=== PATIENT | male | born 1980 | race Hispanic/Latino ===

== ENCOUNTER 2019-07-26 | Emergency (ER) | payer SELFPAY ==
[2019-07-26] MEDS ORDERED: AMOX/K CLAV875 M1 PO (14:34)
[2019-07-27] MEDS ORDERED: MIRALAX3350 N1 PO (15:24)
== END 2019-07-26 15:25 | disposition home or self-care (01) | DRG 921 ==
DX: T81.31XA Disruption of external operation (surgical) wound, not elsewhere classified, initial encounter (principal); Y83.9 Surgical procedure, unspecified as the cause of abnormal reaction of the patient, or of later complication, without mention of misadventure at the time of the procedure; E11.9 Type 2 diabetes mellitus without complications

== ENCOUNTER 2019-07-27 | Emergency (ER) | payer SELFPAY ==
[~2019-07-27] MED LIST: AMOX/K CLAV875 M1 PO
[2019-07-27] MEDS ORDERED: MIRALAX3350 N1 PO (15:24)
== END 2019-07-27 15:25 | disposition home or self-care (01) | DRG 950 ==
DX: T81.31XD Disruption of external operation (surgical) wound, not elsewhere classified, subsequent encounter (principal); Y83.9 Surgical procedure, unspecified as the cause of abnormal reaction of the patient, or of later complication, without mention of misadventure at the time of the procedure

== ENCOUNTER 2019-07-28 | Emergency (ER) | payer SELFPAY ==
[~2019-07-28] MED LIST changes: +MIRALAX3350 N1 PO
[2019-07-29] MEDS ORDERED: DOK100 MG PO (14:25)
== END 2019-07-28 15:10 | disposition home or self-care (01) | DRG 950 ==
DX: T81.31XD Disruption of external operation (surgical) wound, not elsewhere classified, subsequent encounter (principal); Y83.9 Surgical procedure, unspecified as the cause of abnormal reaction of the patient, or of later complication, without mention of misadventure at the time of the procedure

== ENCOUNTER 2019-07-29 | Emergency (ER) | payer SELFPAY ==
[2019-07-29] MEDS ORDERED: DOK100 MG PO (14:25)
== END 2019-07-29 14:55 | disposition home or self-care (01) | DRG 950 ==
DX: T81.31XD Disruption of external operation (surgical) wound, not elsewhere classified, subsequent encounter (principal); Y83.9 Surgical procedure, unspecified as the cause of abnormal reaction of the patient, or of later complication, without mention of misadventure at the time of the procedure

== ENCOUNTER 2019-08-03 | Emergency (ER) | payer SELFPAY ==
[~2019-08-03] MED LIST changes: +DOK100 MG PO
[2019-08-03 09:06] LABS: HEMATOCRIT 39.2 % (39.0-50.0); HEMOGLOBIN 12.9 g/dl (14.0-18.0); IMMATURE GRANULOCYTES 0.3 % (0.0-5.0); MEAN CELL VOLUME 86.7 fL CALC (80.0-100.0); MEAN CORPUSCULAR HGB 28.5 pG CALC (26.0-32.0); MEAN CORPUSCULAR HGB CONC 32.9 g/L CALC (32.0-36.0); NEUT# 7.67 thou/uL (1.82-7.42); RED BLOOD COUNT 4.52 mill/uL (4.70-6.10); RED CELL DISTRI WIDTH 11.9 % (11.5-15.5)
[2019-08-03 09:18] LABS: ALKALINE PHOSPHATASE 104 u/l (38-126); ANION GAP 16 (6-22 (CALC)); BILIRUBIN, TOTAL 0.5 mg/dL (0.0-1.4); BUN 13 mg/dL (9-20); BUN/CREATININE RATIO 23 (12-20 (CALC)); CARBON DIOXIDE 21 mmol/l (22-30); CHLORIDE 103 mmol/l (95-108); CREATININE 0.6 mg/dL (0.7-1.3); GFR > 60 ML/MIN (>=60 (CALC)); GFR FOR AFR.AMER. > 60 ML/MIN (>=60 (CALC)); POTASSIUM 4.4 mmol/l (3.5-5.1); SGOT/AST 28 u/l (17-59); SODIUM 136 mmol/l (137-146); TOTAL PROTEIN 7.7 g/dL (6.3-8.2)
[2019-08-03 13:13] LABS: URINE BILIRUBIN - DIPSTICK NEGATIVE (NEGATIVE); URINE BLOOD DIPSTICK NEGATIVE (NEGATIVE); URINE COLOR YELLOW; URINE GLUCOSE - DIPSTICK NEGATIVE (NEGATIVE); URINE KETONE TRACE mg/dL (NEGATIVE); URINE LEUK ESTERASE NEGATIVE (NEGATIVE); URINE NITRITE - DIPSTICK NEGATIVE (Negative); URINE PH 5.5 (4.5-8.0); URINE PROTEIN - DIPSTICK NEGATIVE (NEG-TRACE)
[2019-08-03] MEDS ORDERED: CIPROFLOXACIN500 M1 PO (14:36)
[2019-08-03] MEDS ORDERED: METRONIDAZOL500 MG PO (14:36)
== END 2019-08-03 16:10 | disposition home or self-care (01) | DRG 392 ==
PROVIDERS: Emergency Medicine
DX: R10.31 Right lower quadrant pain (principal); E11.9 Type 2 diabetes mellitus without complications; Z98.890 Other specified postprocedural states
CPT/HCPCS: Q9967

== ENCOUNTER 2020-10-17 23:26 | Inpatient (IN) | payer OTHER ==
[~2020-10-17] VITALS: Ht 162.6 cm; Wt 110.0 kg
[~2020-10-17 23:26] MED LIST changes: +CIPROFLOXACIN500 M1 PO; +METRONIDAZOL500 MG PO
--- NOTE | 2020-10-17 23:29 | NUR ---
ARRIVED AMBULATORY..FROM REGISTRATION TO ROOM 10. C/O SOB. TRIAGED AT BEDSIDE. TO BEDSIDE.
[2020-10-17 23:56] LABS: HEMATOCRIT 38.5 % (39.0-50.0); HEMOGLOBIN 13.3 g/dl (14.0-18.0); IMMATURE GRANULOCYTES 0.3 % (0.0-5.0); MEAN CELL VOLUME 85.6 fL CALC (80.0-100.0); MEAN CORPUSCULAR HGB 29.6 pG CALC (26.0-32.0); MEAN CORPUSCULAR HGB CONC 34.5 g/dL CAL (32.0-36.0); NEUT# 6.1 thou/uL (1.82-7.42); RED BLOOD COUNT 4.5 mill/uL (4.70-6.10); RED CELL DISTRI WIDTH 12.1 % (11.5-15.5)
[2020-10-18] VITALS (16 sets, daily range): BP systolic 131–176; BP diastolic 63–86
[2020-10-18 00:10] LABS: ALBUMIN 3.3 g/dL (3.2-5.0); ALKALINE PHOSPHATASE 92 u/l (38-126); BILIRUBIN, TOTAL 0.7 mg/dL (0.0-1.4); BUN 9 mg/dL (9-20); BUN/CREATININE RATIO 17 (12-20 (CALC)); CREATININE 0.5 mg/dL (0.7-1.3); GFR > 60 ML/MIN (>=60 (CALC)); GFR FOR AFR.AMER. > 60 ML/MIN (>=60 (CALC))
[2020-10-18 00:15] LABS: CHLORIDE 93 mmol/l (95-108)
[2020-10-18 00:17] LABS: ANION GAP 9 (6-22 (CALC)); CARBON DIOXIDE 30 mmol/l (22-30); POTASSIUM 3.3 mmol/l (3.5-5.1); SGOT/AST 59 u/l (17-59); SODIUM 129 mmol/l (137-146); TOTAL PROTEIN 6.1 g/dL (6.3-8.2)
--- NOTE | 2020-10-18 00:30 | NUR ---
RESTING QUIETLY AWAITING TEST RESULTS.
--- NOTE | 2020-10-18 01:02 | NUR ---
RETURNED FROM CT. SAO2 89 INCREASED O2 TO 6 LPM.
[2020-10-18 01:03] LABS: URINE BILIRUBIN - DIPSTICK NEGATIVE (NEGATIVE); URINE BLOOD DIPSTICK SMALL (NEGATIVE); URINE COLOR YELLOW; URINE GLUCOSE - DIPSTICK >=1000 mg/dL (NEGATIVE); URINE KETONE >=80 mg/dL (NEGATIVE); URINE PROTEIN - DIPSTICK 100 mg/dL (NEG-TRACE); URINE SPECIFIC GRAVITY 1.025
[2020-10-18 01:10] LABS: URINE LEUK ESTERASE NEGATIVE (NEGATIVE); URINE NITRITE - DIPSTICK NEGATIVE (Negative)
[2020-10-18 01:11] LABS: URINE BACTERIA FEW hpf; URINE EPITHELIAL CELLS FEW EPI/hpf (0-FEW); URINE MUCUS MODERATE hpf (NONE-FEW)
--- NOTE | 2020-10-18 02:00 | NUR ---
AWAITING DISPO APPEARS COMFORTABLE
--- NOTE | 2020-10-18 02:20 | NUR ---
Admission Note Report Given to: CINDA MOREAU Transported by: X Wheelchair Stretcher Transported with: X Nurse Transporter X Patent IV X O2 X Guard Manager Location: ICU X MS2
--- NOTE | 2020-10-18 02:25 | NUR ---
PT ARRIVED TO FLOOR VIA WHEELCHAIR ACCOMPAINED BY ER STAFF. PT A&O X4. NO APPARENT DISTRESS NOTED. RESPIRATIONS LABORED, SOB WITH EXERTION ON 6L/M VIA NC. DRY NON-PRODUCTIVE COUGH NOTED. PT AMBULATORY WITH STEADY GAIT FROM WHEELCHAIR TO BED. SKIN INTACT. OFFICE RECEPTIONIST IN PLACE. IV SITE APPEARS HEALHTY WITH IVF INFUSING @ 125ML/HR. PT DENIES ANY PAIN OR DISCOMFORT. CHUY HOSE AND NON-SKID SOCKS APPLIED. PT ORIENTED TO ROOM AND CALL LIGHT SYSTEM. DISCUSSED POC. PT VERBALIZED UNDERSTANDING. FRESH ICE WATER PROVIDED. PT DENIES ANY CURRENT WANTS OR NEEDS. CALL LIGHT WITHIN REACH. WILL CONTINUE TO MONITOR.
--- NOTE | 2020-10-18 07:00 | NUR ---
PT REPORT RECEIVED FROM NIGHT NURSELIZZETH.
--- NOTE | 2020-10-18 08:00 | NUR ---
PT WAS FOUND RESTING IN BED IN SEMI-FOWLERS POSITION;PT WAS A&O X3;VS AND ASSESSMENT WAS COMPLETED;PT HAS NO REPORTS OF PAIN AT THIS TIME;HEART SOUNDS ARE REGULAR IN RATE AND RHYTHM;LUNG SOUNDS ARE CLEAR AND DIMINSHED IN THE LOWER LOBES;PT O2 SAT IS 86% ON O2 VIA NC @6L;RESPIRATIONS ARE LABORED;NON-PRODUCTIVE COUGH NOTED;CALL WAS MADE TO RESPIRATORY THERAPY;REQUESTED THEM TO COME AND EVALUATE PT CLARITZA;TELE IS IN PLACE;#20G IV IN LAC IS RUNNING NS@125ML/HR;IV SITE IS FREE OF COMPLICATIONS AT THIS TIME;SAFETY PRECAUTIONS IN PLACE;CALL LIGHT WITHIN REACH;BED IN LOWEST POSITION;WILL CONTINUE TO MONITOR.
--- NOTE | 2020-10-18 08:20 | NUR ---
PT VS WERE TAKEN AND O2 SATS FOUND TO BE AT 86% ON O2 @6L VIA NC;PT WAS EXPERIENCING LABORED BREATHING;RESPIRATORY THERAPY WAS CONTACTED AND REQUESTED TO COME EVALUATE PT;
--- NOTE | 2020-10-18 08:31 | NUR ---
SLAB GRINDER CALLED TO ASSES PT PER INCREASED WOB AND DECREASED SPO2 ON 6L NC. SLAB GRINDER CHECKED SPO2 PER PORTABLE PULSE OXIMETRY. SPO2 =74 AT THAT TIME. SLAB GRINDER SET UP HFNC O2 DELIVERY SYSTEM AND PLACED PT ON 15LPM HFNC. PT SPO2 INCREASED TO 85 SLOWLY, AT THIS TIME RT CONSULTED WITH KETTLE HAND AND SUGGESTED TRANSFER TO ICU PER PT INCREASED O2 DEMAND. SLAB GRINDER THEN CONSULTED WITH PT AND INFORMED OF POSSIBLE TRANSFER FOR CLOSER MONITORING. PT VERBALIZED HE UNDERSTOOD, AND IS RECEPTIVE TO THE TRANSFER TO ICU. SLAB GRINDER THEN BROUGHT VAPOTHERM SET UP TO ICU FOR QUICK SET UP AND DEPLOYMENT OF HHFNC/VAPOTHERM O2 DELIVERY SYSTEM TO BETTER SUIT PT O2 DEMAND AT THIS TIME. SLAB GRINDER TO MONITOR.
[2020-10-18 09:59] LABS: C-REACTIVE PROTEIN 21.2 mg/dL (0-0.9)
--- NOTE | 2020-10-18 10:41 | NUR ---
report received from Saulo Hill RN
--- NOTE | 2020-10-18 10:54 | NUR ---
CALL WAS MADE TO GHADA IN ICU;PT REPORT GIVEN FOR TRANSFER TO UNIT;PT WAS TRANSPORTED VIA STRETCHER TO ICU IN STABLE CONDITION;PT WAS ACCOMPANIED BY CONCRETE MIXER LOADER TRUCK MOUNTED AND SARAH LOYA;PT WAS TRANSPORTED ON 15L O2 VIA NC
--- NOTE | 2020-10-18 10:57 | NUR ---
male pt received to ICU bed 1 via bed accompanied by Saulo Hill and RT Curtis in stable condition; assessment completed at this time; pt alert and oriented; denies pain; no n/v noted; resp shallow, nonlabored; lungs clear/ diminished bases; skin color wnl; vapotherm placed per RT Curtis/ RT at bedside to titrate settings; dry cough noted/ pt admits to coughing up phelgm; no sputum to observe at this time; hr reg; strong pulses; no edema noted; sr on monitor; abd soft with bs present; no bm noted per insurance underwriter sales; no urine to inspect at this time; urinal placed at bedside; #20 patent to lac; ivf infusing without complication; no redness or edema noted at site; proning explained and strongly encouraged; pt admits to attempting prone position and not tolerating well d/t sob; plan of care/ am meds explained; call light within reach; will continue to monito
--- NOTE | 2020-10-18 11:26 | NUR ---
PLACED PT ON VAPOTHERM UPON ARRIVAL TO ICU. PT TRANSPORTED TO ICU FROM [facility] ON 15LPM [facility] C SPO2 @ 88. UPON ARRIVAL, CHIEF PRIVACY OFFICER PLACED PT ON VAPOTHERM 20LPM/50%FIO2 AND TITRATED TO KEEP SPO2 >/= 92%. RN AT BEDSIDE C CHIEF PRIVACY OFFICER AND PT, RN AWARE OF VAPOTHERM. PT VERBALIZES UNDERSTANDING OF OXYGEN DELIVERY SYSTEM. CHIEF PRIVACY OFFICER TO MONITOR.
--- NOTE | 2020-10-18 12:20 | NUR ---
awake in bed eating lunch; no apparent distress noted; pt offers no complaints; iv intact and patent; sr on monitor; vapotherm at 40L with 100% FiO2; call light within reach; will continue to monitor
--- NOTE | 2020-10-18 12:49 | NUR ---
angelina Schwab called per inspector automatic typewriter as per pt request; update provided;
--- NOTE | 2020-10-18 14:14 | NUR ---
awake in bed; no apparent distress noted; pt admits to breathing easiler; sr on monitor; vapotherm intact and maintained; o2 sat 93%; call light within reach; will continue to monitor
--- NOTE | 2020-10-18 15:05 | NUR ---
PT RESTING OMFORTABLY, ASLEEP, FLAT IN BED, SUPIN. NO ACUTE DISTRESS NOTED AT THIS TIME. SLASHER SAWYER TO MONITOR.
--- NOTE | 2020-10-18 15:57 | NUR ---
pt awake in bed; no apparent distress noted; resp even and unlabored; vapotherm intact and maintained with 40L at 100% FiO2; sr on monitor; iv intact and patent; no redness or edema noted at site; call light within reach; will continue to monitor
--- NOTE | 2020-10-18 17:55 | NUR ---
awake in bed; no apparent distress noted; pt offers no complaints; eating dinner; iv intact and patent; no redness or edema noted at site; sr on monitor; vapotherm intact and maintained; call light within reach
--- NOTE | 2020-10-18 18:13 | NUR ---
sister Perla called this telegraphic typewriter installer; passcode verified; update provided
--- NOTE | 2020-10-18 19:28 | NUR ---
PATIENT RESTING IN BED WITH EYES CLOSED. RESP EVEN AND UNLABORED, VAPOTHERM IN PLACE. NO S/S OF DISTRESS NOTED. FALL AND SAFTEY PRECAUTIONS IN PLACE. IV INFUSING KVO FLUIDS. USING BEDSIDE URINAL. PLAN OF CARE DISCUSSED. PATIENT INFORMED TO CALL WITH ANY QUESTIONS OR CONCERNS.
--- NOTE | 2020-10-18 21:14 | NUR ---
PATIENT EDUCATED ON BENEFITS OF PRONING. PATIENT STATED THAT HE IS MORE SOB PRONING. PM MEDICATIONS GIVEN PER MD ORDERS.
[2020-10-19] VITALS (22 sets, daily range): BP systolic 131–185; BP diastolic 70–95
--- NOTE | 2020-10-19 | NUR ---
PATIENT RESTING WITH EYES CLOSED. RESP SHALLOW AND LABORED, VAPOTHERM IN PLACE. FALL AND SAFTY PRECAUTION IN PLACE.
--- NOTE | 2020-10-19 02:00 | NUR ---
PATIENT RESTING WITH EYES CLOSED. RESP SHALLOW AND LABORED, VAPOTHERM IN PLACE. PATIENT'S O2 SAT DROPPED TO LOW 80%, PATIENT RECOVERED AFTER SEVERAL MINS. FALL AND SAFTEY PRECAUTIONS IN PLACE.
--- NOTE | 2020-10-19 04:30 | NUR ---
PATIENT HAD SEVERAL EPISODES OF COUGHING WHICH LEAD TO SHALLOW BREATHING AND LOW O2 SAT. PATIENT WAS PLACED ON NON-REBREATHER AT 15L WITH VAPOTHERM IN PLACE 40L 100%. RT CALLED TO BEDSIDE, AFTER COACHING THE PATIENT TO DEEP BREATH HIS O2 SAT DIDN'T SHOW MUCH IMPROVEMENT. O2 SAT AT THAT TIME WERE 80-82%. THE PATIENT WAS THEN PLACED ON BIPAP DUE TO RESP DISTRESS. CALL WAS PLACED TO HARINDER HILTON, TO UPDATED ON PATIENT CONDITION. NEW ORDERS GIVEN FOR XANAX AND ROBITUSSION AC. INSTRUCTED TO GIVEN XANAX FIRST AND WAIT SEVERAL HOURS TO GIVEN ROBITUSSION AC TO AVIOD OVER SEDATION.
[2020-10-19 05:00] LABS: HEMATOCRIT 41.8 % (39.0-50.0); IMMATURE GRANULOCYTES 0.9 % (0.0-5.0); MEAN CELL VOLUME 86.9 fL CALC (80.0-100.0); MEAN CORPUSCULAR HGB 29.1 pG CALC (26.0-32.0); MEAN CORPUSCULAR HGB CONC 33.5 g/dL CAL (32.0-36.0); NEUT# 12.3 thou/uL (1.82-7.42); RED BLOOD COUNT 4.81 mill/uL (4.70-6.10); RED CELL DISTRI WIDTH 12.3 % (11.5-15.5)
[2020-10-19 05:27] LABS: ALBUMIN 3.2 g/dL (3.2-5.0); ALKALINE PHOSPHATASE 89 u/l (38-126); ANION GAP 15 (6-22 (CALC)); BILIRUBIN, TOTAL 0.8 mg/dL (0.0-1.4); BUN 14 mg/dL (9-20); BUN/CREATININE RATIO 33 (12-20 (CALC)); CARBON DIOXIDE 24 mmol/l (22-30); CHLORIDE 97 mmol/l (95-108); CREATININE 0.4 mg/dL (0.7-1.3); GFR > 60 ML/MIN (>=60 (CALC)); GFR FOR AFR.AMER. > 60 ML/MIN (>=60 (CALC)); POTASSIUM 3.6 mmol/l (3.5-5.1); SGOT/AST 56 u/l (17-59); SODIUM 133 mmol/l (137-146); TOTAL PROTEIN 6.2 g/dL (6.3-8.2)
[2020-10-19 05:51] LABS: C-REACTIVE PROTEIN 17.3 mg/dL (0-0.9)
--- NOTE | 2020-10-19 07:10 | NUR ---
pt awake in bed; pt offers no complaints at this time; assessment completed; pt alert and oriented; denies pain; no n/v noted; resp labored; lungs clear upper anterior otherwise diminished throughout; skin color wnl; bipap intact with settings of 16/10, rate 16, FiO2 100%; retail supervisor loose cough noted; pt admits to sob with any movement, talking and coughing; hr reg; strong pulses; no edema noted; sr on monitor; abd soft with bs present; no bm noted per automobile service writer; pt voiding clear dk yellow urine; urinal at bedside; #20 patent to lac with ivf infusing without complication; no redness or edema noted at site; plan of care/ am meds explained; IS and flutter valve present at bedside; pt deny use of devices since educated yesterday; importance explained; call light within reach; will continue to monitor
--- NOTE | 2020-10-19 08:07 | NUR ---
pt awake in bed; offers no complaints; vapotherm intact at 40L with 100% FiO2; sr on monitor; call light within reach; will continue to monitor
--- NOTE | 2020-10-19 10:00 | NUR ---
awake in bed; offers no complaints; iv intact and patent; labored resp noted; Dr Griggs present at bedside to assess pt and discuss plan of care; pt deny using IS since educated; pt able to demo use per MD request/ poor effort noted; sr on monitor; o2 per vaptherm; pt to be placed back on bipap; call light within reach; will continue to monitor
--- NOTE | 2020-10-19 12:02 | NUR ---
resting in bed with eyes closed; declined meal at this time; bipap intact and maintained; iv intact and patent; sr on monitor; pt appear more relaxed; call light within reach; will continue to monitor
--- NOTE | 2020-10-19 14:03 | NUR ---
pt awake in bed; no apparent distress noted; pt offers no complaints; bipap intact and maintained; o2 sat 95%; resp tachypneic/ slightly labored; pt continues to declined staff request to prone; slow deep breathing explained and pt able to demonstrate; sr on monitor; call light within reach; will continue to monitor
--- NOTE | 2020-10-19 15:13 | NUR ---
sister Perla called this telegraphic typewriter mechanic; passcode verified; update provided
--- NOTE | 2020-10-19 16:20 | NUR ---
awake in bed lying on right side; no apparent distress noted; bipap intact and maintained; iv intact and patent; no redness or edema noted at site; sr on monitor; call light within reach; will continue to monitor
--- NOTE | 2020-10-19 16:50 | NUR ---
return call placed to angelina Renteria; update provided;
--- NOTE | 2020-10-19 17:10 | NUR ---
pt awake in bed; converted to vapotherm as per request for dinner; pt has been informed of numerous/multiple phone calls from various relatives/friends; pt encouraged to assign a family member to provided updates to family; sister Perla has been selected per pt; will continue to monitor
--- NOTE | 2020-10-19 17:24 | NUR ---
BIPAP PLACED STANDBY. PLACED ON VAPOTHERM 40L @100% FIO2.
--- NOTE | 2020-10-19 18:04 | NUR ---
awake in bed eating dinner; vapotherm at 40L with 100% FiO2; sr on monitor; iv intact and patent; call light within reach
--- NOTE | 2020-10-19 19:13 | NUR ---
REPORT GIVEN BY GHADA. PATIENT IN BED WITH BIPAP IN PLACE. NO S/S OF DISTRESS NOTED. FALL AND SAFTEY PRECAUTIONS IN PLACE. IV INFUSING KVO FLUIDS. URINAL AT THE BEDSIDE.PLAN OF CARE DISCUSSED. PATIENT INFORMED TO CALL WITH ANY QUESTIONS OR CONCERNS.
--- NOTE | 2020-10-19 23:46 | NUR ---
XANAX GIVEN PER PATIENT REQUEST. BIPAP IN PLACE. FALL AND SAFTEY PRECAUTIONS IN PLACE. NO S/S OF DISTRESS NOTED.
[2020-10-20] VITALS (23 sets, daily range): BP systolic 130–184; BP diastolic 69–99
--- NOTE | 2020-10-20 02:00 | NUR ---
PATIENT AWAKE AND ASKING FOR WATER. PATIENT O2 SAT DROPPED TO 82%, PATIENT RECOVERED QUICKLY. FALL AND SAFTEY PRECAUTIONS IN PLACE.
--- NOTE | 2020-10-20 04:02 | NUR ---
PATIENT RESTING WITH EYES CLOSED. RESP EVEN AND UNLABORED, BIPAP IN PLACE. NO S/S OF DISTRESS NOTED. FALL AND SAFTEY PRECAUTIONS IN PLACE.
[2020-10-20 05:47] LABS: HEMATOCRIT 40.1 % (39.0-50.0); HEMOGLOBIN 13.3 g/dl (14.0-18.0); MEAN CELL VOLUME 87.6 fL CALC (80.0-100.0); MEAN CORPUSCULAR HGB CONC 33.2 g/dL CAL (32.0-36.0); RED BLOOD COUNT 4.58 mill/uL (4.70-6.10); RED CELL DISTRI WIDTH 12.3 % (11.5-15.5)
[2020-10-20 06:17] LABS: ALBUMIN 2.8 g/dL (3.2-5.0); ALKALINE PHOSPHATASE 93 u/l (38-126); ANION GAP 9 (6-22 (CALC)); BILIRUBIN, TOTAL 0.6 mg/dL (0.0-1.4); BUN 18 mg/dL (9-20); BUN/CREATININE RATIO 40 (12-20 (CALC)); CHLORIDE 97 mmol/l (95-108); CREATININE 0.4 mg/dL (0.7-1.3); GFR > 60 ML/MIN (>=60 (CALC)); GFR FOR AFR.AMER. > 60 ML/MIN (>=60 (CALC)); POTASSIUM 3.8 mmol/l (3.5-5.1); SGOT/AST 36 u/l (17-59); SODIUM 131 mmol/l (137-146); TOTAL PROTEIN 5.6 g/dL (6.3-8.2)
[2020-10-20 06:37] LABS: CARBON DIOXIDE 29 mmol/l (22-30)
--- NOTE | 2020-10-20 06:45 | NUR ---
REPORT RECEIVED FROM THIERNO ARIAS. CARE ASSUMED.
--- NOTE | 2020-10-20 07:40 | NUR ---
PT RESTING IN BED ON BIPAP. PT IS ALERT AND ORIENTED X3. SHIFT ASSESSMENT COMPLETED AT THIS TIME. IV PATENT X1. RT AT BEDSIDE AT THIS TIME. WE PLACED PT ON VAPOTHERM AT THIS TIME. PT DESATS TO 78%. PT DOES NOT RECOVER. PLACED PT BACK ON BIPAP 16/10 RATE OF 16 FIO2 OF 100%. CALL LIGHT IN REACH. WILL CONTINUE TO MONITOR.
--- NOTE | 2020-10-20 07:46 | NUR ---
TRIED PLACING BIPAP ON STANDBY AND PLACED ON VAPOTHERM 40L AND 100%. O2 SATS DROPPED TO 80%. UNABLE TO BRING UP. PLACED BACK ON BIPAP.
--- NOTE | 2020-10-20 08:00 | NUR ---
AM MEAL TRAY HELD AT THIS TIME DUE TO NOT BEING ABLE TO COME OFF OF BIPAP THIS AM.
--- NOTE | 2020-10-20 08:48 | NUR ---
DR SANCHES AT BEDSIDE AT THIS TIME.
--- NOTE | 2020-10-20 10:18 | NUR ---
PT RESTING IN BED ON BIPAP AT THIS TIME. RESP ARE EVEN AND UNLABORED. NO DISTRESS NOTED. CALL LIGHT IN REACH. WILL CONTINUE TO MONITOR.
--- NOTE | 2020-10-20 10:57 | NUR ---
PT ASSISTED UP TO CHAIR AT THIS TIME ON BIPAP. PT TOLERATED WELL.
--- NOTE | 2020-10-20 11:32 | NUR ---
RT AT BEDSIDE TO PLACE PT ON VAPOTHERM FOR LUNCH MEAL.
--- NOTE | 2020-10-20 12:28 | NUR ---
BIPAP STANDBY. PT. PLACED ON VAPOTHERM FOR LUNCH. UP IN CHAIR.
--- NOTE | 2020-10-20 14:04 | NUR ---
PT SITTING UP IN RECLINER AT THIS TIME. RESP ARE EVEN AND UNLABORED. NO DISTRESS NOTED. CALL LIGHT IN REACH. WILL CONTINUE TO MONITOR.
--- NOTE | 2020-10-20 16:00 | NUR ---
PT REMAINS UP IN RECLINER AT THIS TIME ON VAPOTHERM. NO DISTRESS NOTED. VSS ON MONITOR. CALL LIGHT IN REACH. WILL CONTINUE TO MONITOR.
--- NOTE | 2020-10-20 18:00 | NUR ---
pt sitting up in chair eating dinner at this time. call light in reach. will continue to monitor.
--- NOTE | 2020-10-20 18:18 | NUR ---
sister phoned for update. update provided.
--- NOTE | 2020-10-20 19:50 | NUR ---
PATIENT SITTING UP IN RECLINER. ALERT AND ORIENTED. RESP SHALLOW. ON VAPOTHERM AT THIS TIME, 40 L/100% O2 SAT 92-93% BREATH SOUNDS DIMINISHED THROUGHOUT LUNG MONTERO. ABD OBESE, SOFT WITH BOWEL SOUNDS PRESENT. VOIDS LARGE AMOUNT OF CLEAR NORM URINE IN URINAL. NO PERIPHERAL EDEMA, PULSES PALPABLE. KNEE HIGH CHUY HOSE ON BILATERALLY. SALINE LOCK INTACT IN LAC, SITE BENIGN. DISCUSSED PLAN OF CARE. DENIES NEEDS AT THIS TIME. CALL LANDON IN REACH. HEAVY TRUCK TECHNICIAN SHOWS SR.
--- NOTE | 2020-10-20 20:40 | NUR ---
ACCU CHECK 301-COVERED PER SS PROTOCOL ORDERED. GIVEN HS SNACK OF APPLE JUICE AND NUTRI-GRAIN BAR. PATIENT REQUESTS TO CONTINUE SITTING UP IN RECLINER.
--- NOTE | 2020-10-20 22:00 | NUR ---
ASLEEPI IN RECLINER. RESP REMAIN SHALLOW, NON-LABORED AT REST. VSS. MONITOR SR.
--- NOTE | 2020-10-20 23:20 | NUR ---
PATIENT PALCED ON BIPAP BY RT-SETTINGS 16/10, 100% O2.
--- NOTE | 2020-10-20 23:55 | NUR ---
ASSISTED PATIENT BACK TO BED PER IS REQUEST. REMIANS ON BIPAP. VSS. SR ON MONITOR.
[2020-10-21] VITALS (22 sets, daily range): BP systolic 119–174; BP diastolic 66–98
--- NOTE | 2020-10-21 02:00 | NUR ---
SLEEPING. VSS. MONITOR SR.
--- NOTE | 2020-10-21 04:00 | NUR ---
TOLERATING BIPAP WELL. O2 SAT 91-93% VSS. SR ON MONITOR.
--- NOTE | 2020-10-21 05:38 | NUR ---
PATIENT SISTER JENIFER CALLED FOR CONDITION UPDATE.
[2020-10-21 05:42] LABS: HEMATOCRIT 42.3 % (39.0-50.0); HEMOGLOBIN 14.3 g/dl (14.0-18.0); IMMATURE GRANULOCYTES 1.7 % (0.0-5.0); MEAN CORPUSCULAR HGB 29.1 pG CALC (26.0-32.0); MEAN CORPUSCULAR HGB CONC 33.8 g/dL CAL (32.0-36.0); NEUT# 8.84 thou/uL (1.82-7.42); RED BLOOD COUNT 4.92 mill/uL (4.70-6.10); RED CELL DISTRI WIDTH 11.9 % (11.5-15.5)
[2020-10-21 06:03] LABS: ANION GAP 13 (6-22 (CALC)); BUN 16 mg/dL (9-20); BUN/CREATININE RATIO 33 (12-20 (CALC)); C-REACTIVE PROTEIN 5.2 mg/dL (0-0.9); CARBON DIOXIDE 27 mmol/l (22-30); CHLORIDE 94 mmol/l (95-108); CREATININE 0.5 mg/dL (0.7-1.3); GFR > 60 ML/MIN (>=60 (CALC)); GFR FOR AFR.AMER. > 60 ML/MIN (>=60 (CALC)); POTASSIUM 4.1 mmol/l (3.5-5.1); SODIUM 130 mmol/l (137-146)
--- NOTE | 2020-10-21 06:10 | NUR ---
SLEPT WELL. VSS. O2 SAT 98%
--- NOTE | 2020-10-21 06:45 | NUR ---
REPORT RECEIVED FROM ARON ARIAS. CARE ASSUMED.
--- NOTE | 2020-10-21 07:30 | NUR ---
PT RESTING IN BED WITH EYES CLOSED. AROUSES TO VERBAL STIMULI. SHIFT ASSESSMENT COMPLETED AT THIS TIME. IV PATENT X1. PT ASSSITED UP TO RECLINER AT BEDSIDE AT THIS TIME ON BIPAP. PT THEN PLACED ON VAPOTHERM AT 40L 100% FIO2. CALL LIGHT IN REACH. WILL CONTINUE TO MONITOR.
--- NOTE | 2020-10-21 08:00 | NUR ---
PT SET UP FOR AM MEAL AT THIS TIME.
--- NOTE | 2020-10-21 08:27 | NUR ---
DR SANCHES AT BEDSIDE AT THIS TIME.
--- NOTE | 2020-10-21 09:57 | NUR ---
SISTER KONG PHONED FOR UPDATE. PT GAVE PERMISSION FOR CODE TO BE PROVIDED.
--- NOTE | 2020-10-21 10:00 | NUR ---
CONSULT ROBERT BLACK FOR TIN GOLDEN FOR PULMONOLOGY
--- NOTE | 2020-10-21 10:56 | NUR ---
PULMONOLOGY CONSULT COMPLETED WITH DR GOLDEN VIA [facility] VAPOTHERM SETTING TITRATED PER RECOMMENDATIONS TO 80% FIO2 AND 36L. PT TOLERATED WELL.
--- NOTE | 2020-10-21 12:30 | NUR ---
PT SITTING UP IN RECLINER EATING LUNCH AT THIS TIME. CALL LIGHT IN REACH. WILL CONTINUE TO MONITOR.
--- NOTE | 2020-10-21 14:30 | NUR ---
PT ASSISTED BACK TO BED ON BIPAP PER REQUEST AT THISTIME. PT TOLERATED WELL. CALLLIGHT IN REACH. WILL CONTINUE TO MONITOR.
--- NOTE | 2020-10-21 16:00 | NUR ---
PT RESTING IN BED ON BIPAP AT THIS TIME. PT VOICES NO COMPLAINTS AT THIS TIME. CALL LIGHT IN REACH. WILL CONTINUE TO MONITOR.
--- NOTE | 2020-10-21 18:00 | NUR ---
PT PLACED ON VAPOTHERM AT THIS TIME AND SET UP FOR PM MEAL. CALL LIGHT IN REACH. WILL CONTINUE TO MONITOR.
--- NOTE | 2020-10-21 20:30 | NUR ---
PATIENT RESTING IN BED IN FOWLERS POSITION. ON VAPOTHERM AT THIS TIME 40 L/100% RESP SHALLOW, SAWYER. BREATH SOUNDS DIMINISHED. NO PERIPHERAL EDEMA, PULSES PALPABLE. SALINE LOCK IN LAC, SITE BENIGN, FLUSHED AND PATENT. ADMINISTRATIVE TECH SHOWS SR. DISCUSSED PLAN OF CARE. ENCOURAGED TO VOICE FEARS AND CONCERNS. CALL LANDON IN REACH.
--- NOTE | 2020-10-21 20:45 | NUR ---
HS ACCU CHECK 377, COVERED PER MEDIUM DOSE SLIDING SCALE PROTOCOL ORDERED. GIVEN HS SNACK.
--- NOTE | 2020-10-21 22:00 | NUR ---
DAHLIA HICKS PHONED IN FOR CONDITION UPDATE. PATIENT RESTING IN BED WATCHING TV.
--- NOTE | 2020-10-21 23:40 | NUR ---
MEDICATED WITH ROBITUSSIN FOR COUGH AND XANAX FOR ANXIETY PER PATIENT REQUEST. VSS. RESP SHALLOW. ON VAPOTHERM CURRENT SETTINGS 38 L/100%
[2020-10-22] VITALS (23 sets, daily range): BP systolic 98–181; BP diastolic 56–102
--- NOTE | 2020-10-22 02:00 | NUR ---
RESTING WITH EYES CLOSED. VAPOTHERM IN PLACE, 38 L/100% O2 SAT 88-91% RR MID 20'S. SR ON MONITOR.
--- NOTE | 2020-10-22 04:00 | NUR ---
NO CHANGES TO REPORT. SLEEPING SOUNDLY. VAPOTHERM IN PLACE, SAME SETTINGS EARLIER. O2 SAT 91% RESP NON-LABORED AT REST. SR ON MONITOR.
[2020-10-22 05:47] LABS: HEMATOCRIT 39.2 % (39.0-50.0); HEMOGLOBIN 13.2 g/dl (14.0-18.0); IMMATURE GRANULOCYTES 1.9 % (0.0-5.0); MEAN CORPUSCULAR HGB 28.9 pG CALC (26.0-32.0); MEAN CORPUSCULAR HGB CONC 33.7 g/dL CAL (32.0-36.0); NEUT# 9.95 thou/uL (1.82-7.42); RED BLOOD COUNT 4.56 mill/uL (4.70-6.10); RED CELL DISTRI WIDTH 11.9 % (11.5-15.5)
[2020-10-22 06:12] LABS: ANION GAP 10 (6-22 (CALC)); BUN 16 mg/dL (9-20); BUN/CREATININE RATIO 33 (12-20 (CALC)); CARBON DIOXIDE 29 mmol/l (22-30); CHLORIDE 94 mmol/l (95-108); CREATININE 0.5 mg/dL (0.7-1.3); GFR > 60 ML/MIN (>=60 (CALC)); GFR FOR AFR.AMER. > 60 ML/MIN (>=60 (CALC)); SODIUM 129 mmol/l (137-146)
--- NOTE | 2020-10-22 06:16 | NUR ---
REMAINS ON VAPOTHERM LITER FLOW REDUCED TO 36 BY HOUSING RELOCATION AT [employer] 540 THIS MORNING REMAINS ON 100% O2 SAT 88% SLEPT WELL.
--- NOTE | 2020-10-22 07:31 | NUR ---
REPORT RECEIVED FROM HUGO BOWEN. PT RESTING IN BED SEMI FOWLERS WITH HOB ELEVATED; EYES CLOSED AND NO SIGNS OF DISTRESS. AWAKENS SPONTANEOUSLY; DROWSY. DENIES PAIN. RESPIRATIONS SHALLOW, EVEN, AND UNLABORED ON VAPOTHERM 36L AND 100% FIO2; REPORTS MILD SOB AT REST. REMAINS ON [place]/CONTACT PRECAUTIONS FOR POSITIVE COVID RESULT. POC REVIEWED; PT ENCOUAGED TO VERBALIZE CONCERNS. STATES UNDERSTANDING. SAFETY MEASURES IN PLACE. CALL LIGHT WITHIN REACH.
--- NOTE | 2020-10-22 08:45 | NUR ---
DR. SANCHES AT BEDSIDE.
--- NOTE | 2020-10-22 09:21 | NUR ---
XANAX GIVEN WITH AM MEDS; PT APPEARS ANXIOUS. ROCEPHIN INFUSED WITHOUT DIFFICULTY; IV SITE TO LAC APPEARS HEALTHY AND FLUSHES; ZITHROMAX NOW INFUSING.
--- NOTE | 2020-10-22 11:46 | NUR ---
LABETALOL GIVEN FOR BLOOD PRESSURE OF 180/102 WHILE RESTING WITH EYES CLOSED; HEART RATE 89. SPO2 89-90% WITH VAPOTHERM AT 36L FIO2 100%.
--- NOTE | 2020-10-22 13:11 | NUR ---
BLOOD PRESSURE SLIGHTLY IMPROVED; NOW 175/94. PT SITTING UP IN BED EATING LUNCH; DECREASED APETITE. DRY COUGH NOTED; WILL GIVE ROBITUSSIN.
--- NOTE | 2020-10-22 13:39 | NUR ---
REMDESIVIR INFUSING. PT VOIDING CLEAR, YELLOW URINE IN URINAL. PT REPORTS THAT HE IS VERY TIRED. THICK YELLOW SPUTUM EXPECTORATED FROM NOSE.
--- NOTE | 2020-10-22 14:45 | NUR ---
RT AT BEDSIDE; VAPOTHERM SETTINGS ADJUSTED; TITRATED DOWN TO 34L 100% FIO2.
--- NOTE | 2020-10-22 17:00 | NUR ---
RESTING COMFORTABLY WITH NO SIGNS OF DISTRESS; TOLERATING 32L WELL; SPO2 CURRENTLY 90%.
--- NOTE | 2020-10-22 19:10 | NUR ---
REPORT GIVEN BY MELANIA. PATIENT IN BED WITH VAPOTHERM IN PLACE. RESP EVEN AND UNLABORED. NO S/S OF DISTRESS NOTED. FALL AND SAFTEY PRECAUTIONS IN PLACE. IV SALINE LOCKED. IS/FLUTTER AT BEDSIDE. PLAN OF CARE DISCUSSED. PATIENT INFORMED TO CALL WITH ANY QUESTIONS OR CONCERNS.
--- NOTE | 2020-10-22 20:00 | NUR ---
PATIENT AWAKE. NO COMPLAINTS. ACCUCHECK 272. WATER PROVIDED. URINAL EMPTIED 800 ML YELLOW URINE, AND NEW ONE OBTAINED PER PATIENT REQUEST.
--- NOTE | 2020-10-22 20:31 | NUR ---
UPDATED ON PATIENT CONDITION, CODE NUMBER VERIFIED.
[2020-10-23] VITALS (23 sets, daily range): BP systolic 102–176; BP diastolic 57–102
--- NOTE | 2020-10-23 | NUR ---
PATIENT RESTING WITH EYES CLOSED. RESP EVEN AND UNLABORED. NO S/S OF DISTRESS NOTED. FALL AND SAFTEY PRECAUTIONS IN PLACE.
--- NOTE | 2020-10-23 02:00 | NUR ---
PATIENT RESTING WITH EYES CLOSED. RESP EVEN AND UNLABORED, VAPOTHERM IN PLACE. NO S/S OF DSITRESS NOTED. FALL AND SAFTEY PRECAUTIONS IN PLACE.
--- NOTE | 2020-10-23 04:06 | NUR ---
PATIENT EXPERIENCING SOB AND LOW O2 SAT OF 72%. PATIENT PLACED ON BIPAP FROM VAPOTHERM. FALL AND SAFTEY PRECAUTIONS IN PLACE.
[2020-10-23 05:57] LABS: HEMATOCRIT 40.4 % (39.0-50.0); HEMOGLOBIN 13.7 g/dl (14.0-18.0); IMMATURE GRANULOCYTES 2.3 % (0.0-5.0); MEAN CELL VOLUME 86.3 fL CALC (80.0-100.0); MEAN CORPUSCULAR HGB 29.3 pG CALC (26.0-32.0); MEAN CORPUSCULAR HGB CONC 33.9 g/dL CAL (32.0-36.0); NEUT# 11.1 thou/uL (1.82-7.42); RED BLOOD COUNT 4.68 mill/uL (4.70-6.10); RED CELL DISTRI WIDTH 11.9 % (11.5-15.5)
--- NOTE | 2020-10-23 06:17 | NUR ---
pt resting comfortably in bed. xray in room. nad. vss. pharmacy operations manager to monitor.
[2020-10-23 06:28] LABS: ANION GAP 12 (6-22 (CALC)); BUN 15 mg/dL (9-20); BUN/CREATININE RATIO 31 (12-20 (CALC)); CARBON DIOXIDE 29 mmol/l (22-30); CHLORIDE 94 mmol/l (95-108); CREATININE 0.5 mg/dL (0.7-1.3); GFR > 60 ML/MIN (>=60 (CALC)); GFR FOR AFR.AMER. > 60 ML/MIN (>=60 (CALC)); POTASSIUM 4.2 mmol/l (3.5-5.1); SODIUM 131 mmol/l (137-146)
--- NOTE | 2020-10-23 06:45 | NUR ---
REPORT RECEIVED FROM THIERNO ARIAS. CARE ASSUMED.
--- NOTE | 2020-10-23 07:57 | NUR ---
rn and head lineman placed pt on vapotherm as per pt breakfast tray arrived. pt sandra well at this time. no acute distresss noted. head lineman to monitor.
--- NOTE | 2020-10-23 08:00 | NUR ---
PT ASSISTED UP TO RECLINER AT BEDSIDE ON BIPAP AT THIS TIME. PT IS ALERT AND ORIENTED X3. SHIFT ASSESSMENT COMPLETED AT THIS TIME. IV PATENT X1. PT PLACED ON VAPOTHERM 40L 100% FIO2. SET UP FOR AM MEAL. PT ENCOURAGED TO USE INCENTIVE SPRIMOETER AND FLUTTER VALVE WELL. CALL LIGHT IN REACH. WILL CONTINUE TO MONITOR
--- NOTE | 2020-10-23 09:06 | NUR ---
DR SANCHES AT BEDSIDE AT THIS TIME.
--- NOTE | 2020-10-23 09:30 | NUR ---
VAPOTHERM TITRATED TO 75% FIO2 34L. PT TOLERATED WELL. O2 SATS REMAINING >90%.
--- NOTE | 2020-10-23 10:30 | NUR ---
PT ASSISTED WITH COMPLETE HYGIENE CARE. PT TOLERATED WELL.
--- NOTE | 2020-10-23 11:35 | NUR ---
TITRATED VAPOTHERM 70% 30L. O2 SATS REMAINS 88%-90%. FAMILY PHONE CALL CONNECTED TO CORDLESS PHONE TO PATIENT. CALL LIGHT IN REACH. WILL CONTINUE TO MONTIOR.
--- NOTE | 2020-10-23 12:10 | NUR ---
PT SET UP FOR NOON MEAL AT THIS TIME. PT TOLERATING WELL. FAMILY DROPPED OFF FOOD. CALL LIGHT IN REACH. WILL CONTINUE TO MONITOR.
--- NOTE | 2020-10-23 14:00 | NUR ---
PT SITTING UP IN RECLINER AT THIS TIME. RESP REMAIN EVEN AND UNLABORED. NO DISTRESS NOTED. CALL LIGHT INN REACH. PT STATES THAT HE WANTS TO TRY AND PRONE TONIGHT. WILL PASS ON TO REGIONAL CONTROLLER. CALL LIGHT IN REACH. WILL CONTINUE TO MONITOR.
--- NOTE | 2020-10-23 14:29 | NUR ---
PT IN CHAIR BY BEDSIDE, LUPE. KWAME ANDERS ON HIS PHONE. NO CHNAGES AT THIS TIME. WIRELESS MANAGER TO MONITOR.
--- NOTE | 2020-10-23 16:29 | NUR ---
PT SITTING UP IN RECLINER AT BEDSIDE. RESP ARE EVEN AND UNLABORED. NO DISTRESS NOTED. CALL LIGHT IN REACH. WILL CONTINUE TO MONITOR.
--- NOTE | 2020-10-23 18:12 | NUR ---
PT SITTING UP EATING EVENING MEAL. VAPOTHERM TITRATED TO 28L 70% PT TOLERATING WELL. CALL LIGHT IN REACH. WILL CONTINUE TO MONITOR.
--- NOTE | 2020-10-23 19:00 | NUR ---
REPORT GIVEN BY DISHA. PATIENT SITTING IN THE BEDSIDE CHAIR. RESP EVEN AND UNLABORED, VAPOTHERM IN PLACE. NO S/S OF DISTRESS NOTED. IV SALINE LOCKED. FALL AND SAFTEY PRECAUTIONS IN PLACE. PLAN OF CARE DISCUSSED. PATIENT INFORMED TO CALL WITH ANY QUESTIONS OR CONCERNS.
--- NOTE | 2020-10-23 21:02 | NUR ---
PATIENT MEDICATED PER MD THOMPSON. XANAX GIVEN PER PATIENT REQUEST. FALL AND SAFTEY PRECAUTIONS IN PLACE. NO S/S OF DISTRESS NOTED. PATIENT MOVED FROM THE BEDSIDE CHAIR INTO BED FOR THE NIGHT.
--- NOTE | 2020-10-23 22:00 | NUR ---
PATIENT PLACED ON BIPAP BY RT, DUE TO LOW SAT
[2020-10-24] VITALS (22 sets, daily range): BP systolic 99–178; BP diastolic 49–101
--- NOTE | 2020-10-24 00:45 | NUR ---
PATIENT REMOVED FROM BIPAP DUE TO THE MASK NOT FITTING RIGHT ACCORDING TO THE PATIENT. PATIENT PLACED ON VAPOTHERM BY RT, 40L FIO2 100%.
--- NOTE | 2020-10-24 02:10 | NUR ---
PATIENT PLACED BCK ON BIPAP DUE TO LOW O2 SAT
--- NOTE | 2020-10-24 05:19 | NUR ---
PATIENT RESTING WITH EYES CLOSED. BIPAP IN PLACE. NO S/S OF DISTRESS NOTED.
[2020-10-24 05:37] LABS: HEMATOCRIT 39.9 % (39.0-50.0); HEMOGLOBIN 13.5 g/dl (14.0-18.0); IMMATURE GRANULOCYTES 1.9 % (0.0-5.0); MEAN CELL VOLUME 85.8 fL CALC (80.0-100.0); MEAN CORPUSCULAR HGB CONC 33.8 g/dL CAL (32.0-36.0); NEUT# 13.61 thou/uL (1.82-7.42); RED BLOOD COUNT 4.65 mill/uL (4.70-6.10)
[2020-10-24 05:54] LABS: ANION GAP 9 (6-22 (CALC)); BUN 17 mg/dL (9-20); BUN/CREATININE RATIO 39 (12-20 (CALC)); CARBON DIOXIDE 30 mmol/l (22-30); CHLORIDE 94 mmol/l (95-108); CREATININE 0.4 mg/dL (0.7-1.3); GFR > 60 ML/MIN (>=60 (CALC)); GFR FOR AFR.AMER. > 60 ML/MIN (>=60 (CALC)); POTASSIUM 4.3 mmol/l (3.5-5.1); SODIUM 129 mmol/l (137-146)
--- NOTE | 2020-10-24 05:58 | NUR ---
PATIENT RESTING WITH EYES CLOSED. RESP EVEN AND UNLABORED. NO S/S OF DISTRESS NOTED.
--- NOTE | 2020-10-24 06:45 | NUR ---
REPORT RECEIVED FROM THIERNO ARIAS. CARE ASSUMED.
--- NOTE | 2020-10-24 07:14 | NUR ---
weaned fio2 on qhs bipap from 1.0 to .8. pt sandra well at this time. nad. vss. pt resting comfortably in bed, laying flat on back. pot tender to monitor. rn aware.
--- NOTE | 2020-10-24 07:30 | NUR ---
PT RESTING IN BED ON BIPAP WITH EYES CLOSED. PT AROUSES TO VERBAL STIMULI. PT IS ALERT AND ORIENTED X3. SHIFT ASSESSMENT COMPLETED AT THIS TIME. IV PATENT X1. PT PLACED ON VAPOTHERM AT THIS TIME 40L 100% FIO2. PT TOLERATING WELL. CALL LIGHT IN REACH. WILL CONTINUE TO MONITOR.
--- NOTE | 2020-10-24 07:36 | NUR ---
PLACED ON VAPOTHERM PER BREAKFAST TRAY. RN IN ROOM WITH PTManuelito HONG AT THIS TIME. SOME ANXIETY NOTED.
--- NOTE | 2020-10-24 09:30 | NUR ---
PT ASSISTED UP TO RECLINER AT BEDSIDE AT THIS TIME. PT TOLERATED TRANSFER WELL. FACETIMED PT FAMILY MEMBER FOR PATIENT ON NURSES PHONE. PATIENT SPIRITS LIFTED. CALL LIGHT IN REACH. WILL CONTINUE TO MONITOR
--- NOTE | 2020-10-24 10:35 | NUR ---
VAPOTHERM TITRATED TO 80% 36L. O2 SATS REMAIN >90% PT TOLERATING WELL.
--- NOTE | 2020-10-24 10:55 | NUR ---
WEANED VAPOTHERM PARAMTERS PT TOLERATES. NAD. VSS. EATING IN CHAIR AT BEDSIDE. AFTER SCHOOL DRIVER TO MONITOR.
--- NOTE | 2020-10-24 11:02 | NUR ---
FAMILY BROUGHT IN SOUP FOR PATIENT. SET UP FOR PT. PT THANKFUL FOR CARE
--- NOTE | 2020-10-24 12:06 | NUR ---
PT SITTING UP IN RECLINER EATING SOUP AT THIS TIME. RESP ARE EVEN AND UNLABORED. CALL LIGHT IN REACH. WILL CONTINUE TO MONITOR
--- NOTE | 2020-10-24 14:18 | NUR ---
PHYSICAL THERAPY AT BEDSIDE.
--- NOTE | 2020-10-24 15:30 | NUR ---
pt resting comfortably in bedside chair. no acute distress noted. vss. polysomnographic tech to monitor.
--- NOTE | 2020-10-24 16:22 | NUR ---
PT SITTING UP IN RECLINER AT BEDSIDE. RESP ARE EVEN AND UNLABORED. NO DISTRESS NOTED. CALL LIGHT IN REACH. WILL CONTINUE TO MONITOR.
--- NOTE | 2020-10-24 17:46 | NUR ---
PT SITTING UP IN RECLINER AT BEDSIDE AT THIS TIME EATING PM MEAL. VAPOTHERM IN PLACE. CALL LIGHT IN REACH. WILL CONTINUE TO MOLNITOR.
--- NOTE | 2020-10-24 20:30 | NUR ---
SITTING UP IN RECLINER. ON VAPOTHERM 30 L/80% O2. RESP SHALLOW. SAWYER. BREATH SOUNDS VERY DIMINISHED THROUGHOUT LUNG MONTERO. SHIFT ASSESSMENT COMPLETED. SALINE LOCK INTACT IN LAC, SITE BENIGN. PLANT CARE WORKER SHOWS SR. DISCUSSED PLAN OF CARE. DENIES NEEDS AT THIS TIME. CALL LANDON IN REACH.
--- NOTE | 2020-10-24 21:00 | NUR ---
HS ACCU CHECK 346, COVERED PER SS PROTOCOL ORDERED. GIVEN HS SNACK.
--- NOTE | 2020-10-24 22:00 | NUR ---
ASSISTED FROM CHAIR TO BED. DESATS TO 70'S WITH ACTIVITY- O2 INCREASED TO 100% UNTIL PATIENT RESITNG IN BED AND SATS RECOVERED TO 90% WITHIN 5 MINUTES. O2 DECREASED BACK TO 80%
--- NOTE | 2020-10-24 23:05 | NUR ---
RESTORIL 15 MG PO FOR SLEEP AND ROBITUSSIN GIVEN FOR COUGH PER PATIENT REQUEST.
--- NOTE | 2020-10-24 23:15 | NUR ---
BP 175/101 AT THIS TIME, HAS BEEN TRENDING UP THIS EVENING. MEDICATED WITH LABETELOL 10 MG SLOW IVP ORDERED FOR ELEVATED BP.
--- NOTE | 2020-10-24 23:52 | NUR ---
PT PLACED ON BIPAP FOR THE NIGHT 04/04 80%.
[2020-10-25] VITALS (23 sets, daily range): BP systolic 120–179; BP diastolic 71–101
--- NOTE | 2020-10-25 | NUR ---
PLACED ON BIPAP FOR THE NIGHT BY RT VERN. VSS. CABRERA ON MONITOR.
--- NOTE | 2020-10-25 02:05 | NUR ---
RESTING WITH EYE CLOSED. ON BIPAP-O2 SAT 92% SR ON MONITOR. VSS.
--- NOTE | 2020-10-25 04:00 | NUR ---
NO CHANGES TO REPORT. REMAINS ON BIPAP. VSS. SR ON MONITOR.
--- NOTE | 2020-10-25 04:40 | NUR ---
SPECIFICATION CONSULTANT HERE FOR AM LAB DRAW.
[2020-10-25 04:56] LABS: HEMATOCRIT 39.2 % (39.0-50.0); HEMOGLOBIN 13.3 g/dl (14.0-18.0); IMMATURE GRANULOCYTES 1.6 % (0.0-5.0); MEAN CELL VOLUME 85.8 fL CALC (80.0-100.0); MEAN CORPUSCULAR HGB 29.1 pG CALC (26.0-32.0); MEAN CORPUSCULAR HGB CONC 33.9 g/dL CAL (32.0-36.0); NEUT# 11.45 thou/uL (1.82-7.42); RED BLOOD COUNT 4.57 mill/uL (4.70-6.10); RED CELL DISTRI WIDTH 11.9 % (11.5-15.5)
[2020-10-25 05:21] LABS: ANION GAP 8 (6-22 (CALC)); BUN 16 mg/dL (9-20); BUN/CREATININE RATIO 32 (12-20 (CALC)); C-REACTIVE PROTEIN 5.5 mg/dL (0-0.9); CARBON DIOXIDE 32 mmol/l (22-30); CHLORIDE 94 mmol/l (95-108); CREATININE 0.5 mg/dL (0.7-1.3); GFR > 60 ML/MIN (>=60 (CALC)); GFR FOR AFR.AMER. > 60 ML/MIN (>=60 (CALC)); POTASSIUM 4.4 mmol/l (3.5-5.1); SODIUM 129 mmol/l (137-146)
[2020-10-25 05:23] LABS: SGOT/AST 32 u/l (17-59)
--- NOTE | 2020-10-25 05:50 | NUR ---
SLEPT WELL. PATIENT HAS BEEN ON BIPAP THROUGHT THE NIGHT WITH O2 SATS 90-96% VSS. SR ON MONITOR.
--- NOTE | 2020-10-25 06:39 | NUR ---
PT RETING IN BED ON BIPAP, LAYING FLAT. NO ACUTE DISTRESS NOTED. VSS. FINANCE INSURANCE MANAGER WEANED FIO2 ON NIV FROM .8 TO .6. PT CHASIDY WELL AT THIS TIME. RN AWARE. FINANCE INSURANCE MANAGER TO MONITOR.
--- NOTE | 2020-10-25 07:05 | NUR ---
pt awake in bed; no apparent distress noted; pt offers no complaints; assessment completed at this time; pt alert and oriented; denies pain; no n/v noted; resp even and unlabored; lungs clear/ diminished bases; skin color wnl; bipap intact and maintained with settings of 16/10, rate 16, 60% FiO2; exertional sob noted; welfare analyst cough; pt to be converted to vapotherm for breakfast; hr reg; strong pulses; no edema noted; sr on monitor; abd soft/ distended with bs present; no bm noted per sports writer; pt voiding clear yellow urine without complication; urinal at bedside; #20 flushed and patent to lac; no redness or edema noted at site; IS and flutter valve at bedside; pt instructed on use/ pt encouraged to use each q1 hr x 10 reps; plan of care/ am meds explained; call light within reach; will continue to monitor
--- NOTE | 2020-10-25 07:30 | NUR ---
RT at bedside to convert pt to vapotherm for breakfast; pt assisted to recliner; o2 sat dropped to 69%; slow recovery noted; pt requires much encouragement to take slow deep breathes; RT and RN remains at bedside; will continue to monitor closely
--- NOTE | 2020-10-25 07:32 | NUR ---
PLACED PT ON VAPOTHERM PER PT REQUEST, ASSISTED PT AND RN IN PLACEING PT IN BEDSIDE CHAIR AND GETTING PT ACCLIMATED PRIOR TO BREAKFAST. PT SPO2 DROPPED TO 69 UPON EXERTION, AND SPO2 RECOVERY WITHIN 10 MINUTES. SAP HANA ARCHITECT COACHED PT IN DEEP BREATHING AND PURSED LIP BREATHING TECHNIQUES TO SLOW RESPIRATIONS AND ALLOW FOR MAXIMUM O2 DISSOCIATION ACROSS A/C MEMBRANE. PT VERBALIZED UNDERSTANDING AND PRACTICED BREATHING TECHNIQUES. SAP HANA ARCHITECT TO MONITOR.
--- NOTE | 2020-10-25 08:02 | NUR ---
awake in recliner eating breakfast; offers no complaints; o3 per vapotherm at 40L with 100% FiO2; call light within reach; will continue to monitor
--- NOTE | 2020-10-25 08:50 | NUR ---
Dr Stratton present at bedside to assess pt and discuss plan of care
--- NOTE | 2020-10-25 10:00 | NUR ---
resting in recliner; pt offers no complaints; iv intact and patent; abt infusing without complication; no redness or edema noted at site; sr on monitor; o2 per vapotherm; prt denies sob/ resp distress; call light within reach; will continue to monitor
--- NOTE | 2020-10-25 11:00 | NUR ---
WEANED VAPOTHERM PARAMETERS TO 35 LPM/10% PER PT REQUST. PT CHASIDY WELL AT THIS TIME. TEST DATA DEVELOPER TO MONITOR.
--- NOTE | 2020-10-25 12:15 | NUR ---
pt awake in recliner eating lunch; no apparent distress noted; pt offers no complaints; iv intact; sr on monitor; o2 per vapotherm; call light within reach; will continue to monitor
--- NOTE | 2020-10-25 14:18 | NUR ---
awake in recliner; assisted to bsc as per request; iv intact; sr on monitor; o2 per vapotherm; call light within reach; will continue to monitor
--- NOTE | 2020-10-25 15:40 | NUR ---
weaned vapotherm as per pt tolerance and spo2. pt sandra well at this time. weaned from 35lpm to 30 lpm. rn aware. merchandise execution leader to monitor.
--- NOTE | 2020-10-25 16:01 | NUR ---
awake in recliner; no apparent distress noted; pt offers no complaints; o2 per vapotherm; sr on monitor; iv intact; call light within reach; will continue to monitor
--- NOTE | 2020-10-25 17:53 | NUR ---
#20G LAC REMOVED WITH CATHATER STILL INTACT. #22G RAC STARTED, SITE APPEARS HEATHY AND PATENT. PT TOLERATED WELL.
--- NOTE | 2020-10-25 18:25 | NUR ---
awake in recliner; offers no complaints; iv intact; sr on monitor; call light within reach
--- NOTE | 2020-10-25 20:30 | NUR ---
PATIENT SITTING UP IN RECLINER. REMAINS ON VAPOTHERM AT THIS TIME 30 L/100% O2. O2 SAT 98% RESP SHALLOW, SAWYER. BREATH SOUNDS DIMINISHED THROUGHOUT. SALINE LOCK INTACT IN RAC, SITE BENIGN. ASSISTANT QUALITY MANAGER SHOWS SR. DISCUSSED PLAN OF CARE. DENIES NEEDS AT THIS TIME. CALL LANDON IN REACH.
--- NOTE | 2020-10-25 22:00 | NUR ---
ASSISTED BACK TO BED. PATIENT DOES DESAT TO 70% WITH ACTIVITY, RECOVERS WITHIN 5 MINUTES TO 89-91% PATIENT WOULD LIKE TO STAY ON VAPOTHERM FOR AWHILE MORE, HE STATES HE WILL LET US KNOW IF HE WANTS TO GO BACK ON BIPAP.
--- NOTE | 2020-10-25 22:10 | NUR ---
MEDICATED WITH RESTORIL FOR SLEEP AND ROBITUSSIN FOR COUGH PER PATIENT REQUEST. VSS. MONITOR SR.
--- NOTE | 2020-10-25 23:25 | NUR ---
PLACED ON BIPAP BY ANDRAE/DOPE HOUSE OPERATOR HELPER-SETTINGS 04/04, FIO2 60% O2 SAT 95%
[2020-10-26] VITALS (24 sets, daily range): BP systolic 126–173; BP diastolic 68–101
--- NOTE | 2020-10-26 | NUR ---
RESTING WITH EYES CLOSED. RESP NON-LABORED. ON BIPAP. O2 SAT 93%
--- NOTE | 2020-10-26 02:00 | NUR ---
ASLEEP. RESP NON-LABORED AT REST. O2 SAT 96% VSS. SR ON MONITOR.
--- NOTE | 2020-10-26 04:00 | NUR ---
NO CHANGES TO REPORT. VSS. RESP NON-LABORED. CONTINUES ON BIPAP.
--- NOTE | 2020-10-26 05:59 | NUR ---
SLEPT WELL. MAINTAINED O2 SAT 94% ON BIPAP.
--- NOTE | 2020-10-26 07:10 | NUR ---
REPORT RECEIVED FROM INFECTION CONTROL PREVENTIONIST. PT ON VAPOTHERM AT THIS TIME. RESTING QUIETLY ON BED, VITAL SIGNS STABLE
--- NOTE | 2020-10-26 09:58 | NUR ---
PT SITTING UP IN RECLINER TALKING ON PHONE, URINATED APPROX 1000 CC OF DARK YELLOW URINE. NO COMPLAINTS AT THIS TIME, STATES THINKS HE WANTS TO TRY AND GET UP AND MOVE AROUND ROOM A LITTLE TODAY.
--- NOTE | 2020-10-26 12:50 | NUR ---
PT REMAINS SITTING UP ON RECLINER, WATCHING TV, DENIES ANY SOB OR COMPLAINTS.
--- NOTE | 2020-10-26 14:45 | NUR ---
PT STANDING UP AT WINDOW BECAUSE FAMILY WAS SENDING OFF BALLOONS FOR HIM. OXYGEN STAYED IN THE LOW 90'S. STOOD UP FOR APPROX 15 MIN AND THEN WENT BACK TO RECLINER, TALKING ON PHONE. VITAL SIGNS STABLE.
--- NOTE | 2020-10-26 17:44 | NUR ---
PT EATING DINNER MEAL, WATCHING TV, PT DENIES ANY SOB OR COMPLAINTS AT THIS TIME. TALKING ON PHONE TO FAMILY.
--- NOTE | 2020-10-26 20:30 | NUR ---
SITTING UP IN RECLINER. PATIENT STATES HE IS FEELING BETTER THIS EVENING. RESP NON-LABORED AT REST. USING O2 PER VAPOTHERM 30 L/90% O2 SAT 94% BREATH SOUNDS DIMINISHED THROUGHOUT LUNG MONTERO. SHIFT ASSESSMENT COMPLETED. DISCUSSED PLAN OF CARE. DENIES NEEDS AT THIS TIME. CALL LANDON IN REACH.
--- NOTE | 2020-10-26 20:50 | NUR ---
HS ACCU CHECK 344- COVERED PER PROTOCOL ORDERED. HS SNACK PROVIDED TO PATIENT .
--- NOTE | 2020-10-26 22:00 | NUR ---
CONTINUES SITTING UP IN RECLINER, WATCHING TV. VSS. PATIENT STATES WILL LET US KNOW WHEN HE IS READY TO GET BACK TO BED.
--- NOTE | 2020-10-26 23:40 | NUR ---
ASSISTED BACK TO BED WITH ONE PERSON. PATIENT STABLE ON HIS FEET. SAT STABLE DURING ACTIVITY. REQUESTS TO REMAIN ON VAPOTHERM 30 L/90% O2. O2 SAT 94% RESTORIL GIVEN FOR SLEEP AND ROBITUSSIN FOR COUGH PER PATIENT REQUEST.
[2020-10-27] VITALS (16 sets, daily range): BP systolic 119–160; BP diastolic 59–90
--- NOTE | 2020-10-27 01:48 | NUR ---
RESTING WITH EYES CLOSED. O2 SAT MAINTAING 95%VSS.
--- NOTE | 2020-10-27 04:00 | NUR ---
CONTINUES TO SLEEP SOUNDLY. REMAINS ON VAPOTHER, 30L/90% MAINTAINING O2 SATS 95-98% SR ON MONITOR.
[2020-10-27 05:13] LABS: HEMATOCRIT 39.3 % (39.0-50.0); HEMOGLOBIN 13.3 g/dl (14.0-18.0); IMMATURE GRANULOCYTES 1.2 % (0.0-5.0); MEAN CORPUSCULAR HGB 29.1 pG CALC (26.0-32.0); MEAN CORPUSCULAR HGB CONC 33.8 g/dL CAL (32.0-36.0); NEUT# 11.83 thou/uL (1.82-7.42); RED BLOOD COUNT 4.57 mill/uL (4.70-6.10); RED CELL DISTRI WIDTH 12.1 % (11.5-15.5)
[2020-10-27 05:39] LABS: ANION GAP 10 (6-22 (CALC)); BUN 18 mg/dL (9-20); BUN/CREATININE RATIO 29 (12-20 (CALC)); C-REACTIVE PROTEIN 1.2 mg/dL (0-0.9); CARBON DIOXIDE 32 mmol/l (22-30); CHLORIDE 92 mmol/l (95-108); CREATININE 0.6 mg/dL (0.7-1.3); GFR > 60 ML/MIN (>=60 (CALC)); GFR FOR AFR.AMER. > 60 ML/MIN (>=60 (CALC)); POTASSIUM 4.3 mmol/l (3.5-5.1); SODIUM 129 mmol/l (137-146)
--- NOTE | 2020-10-27 06:20 | NUR ---
SLEPT WELL. VSS. RESP NON-LABORED. REMAINS ON VAPOTHERM. O2 SAT 96% SR ON MONITOR.
--- NOTE | 2020-10-27 07:00 | NUR ---
0700-Pt handoff given by HUGO Vance. Pt alert and oriented. Pt states he is tired. Denies pain at time of assessment. No s/s of distress. Lung jimenez are clear but diminished. Non-productive cough. Pt states he is hungry this morning and would like extra eggs and milk. Will comply with request. Pt denies any new symptoms. Will continue to monitor closely. Our plan of care is hourly spirometer use and up to chair Q three times this shift.
--- NOTE | 2020-10-27 08:30 | NUR ---
0830-Vapotherm titrated from 28 liters to 26 liters. Pt tolerating well. Safety precautions in place.
--- NOTE | 2020-10-27 08:32 | NUR ---
O2 FLOW DECREASED TO 26L.
--- NOTE | 2020-10-27 11:14 | NUR ---
1114-Vapotherm titrated from 26 liters to 23 liters. Pt tolerating well. Safety precautions in place.
--- NOTE | 2020-10-27 11:41 | NUR ---
0730-Vapotherm titrated from 30 liters to 28 liters. Pt tolerating well. Will continue to monitor. Safety measures in place.
--- NOTE | 2020-10-27 13:05 | NUR ---
1305-Pt had BM, large. No signs of blood or mucus. Quick bed bath performed. Pt up to chair since 11:00am. Pt denies pain and SOB. Tolerating movement well. Bed linens changed. New gown and socks provided. Mouth care provided.
--- NOTE | 2020-10-27 13:11 | NUR ---
1311-Pt vapotherm titrated from 23 to 20. Pt tolerated well. Safety precautions in place.
--- NOTE | 2020-10-27 15:04 | NUR ---
1504-vapotherm oxygen titrated from 90% to 85% pt tolerated well. Safety precautions in place.
--- NOTE | 2020-10-27 17:00 | NUR ---
1700-Pt sitting up in chair. No s/s of respiratory distress. Pt states that he is feeling better. He physically looks better. Currently respiratory has titrated him to 20 liters and 80% O2. He is tolerating this well. His blood sugars still are uncontrolled, 1700 reading is 340 covered with 7 units per scale. Pt denies pain. All in all he is making respiratory improvements during this shift. He also had a BM and states that his appetite is increasing. Pt stable at this time. Safety precautions enforced.
--- NOTE | 2020-10-27 20:30 | NUR ---
SITTING UP IN RECLINER. ON VAPOTHERM. PATIENT IS TOLERATING O2 WEANING WELL. O2 SAT 93-96% ON 20 L/75% REDUCED TO 70% AT THIS TIME. RESP NON-LABORED AT REST. BREATH SOUNDS REMAIN DIMINISHED THROUGHOUT LUNG MONTERO. SHIFT ASSESSMENT COMPLETED. DISCUSSED PLAN OF CARE. NO NEEDS IDENTIFIED AT THIS TIME. CALL LANDON IN REACH.
--- NOTE | 2020-10-27 21:00 | NUR ---
HS ACCU CHECK 343, COVERED PER SS PROTOCOL ORDERED. PATIENT PROVIDED WITH HS SNACK.
--- NOTE | 2020-10-27 22:00 | NUR ---
SITTING UP IN RECLINER WATCHING MOVIE. NO COMPLAINTS VOICED.
--- NOTE | 2020-10-27 23:15 | NUR ---
RESOTRIL GIVEN FOR SLEEP AND ROVITUSSIN FOR COUGH. PATIENT REQUESTS TO STAY IN CHAIR UNTIL HE IS DONE WATCHING A MOVIE.
[2020-10-28] VITALS (12 sets, daily range): BP systolic 119–165; BP diastolic 62–91
--- NOTE | 2020-10-28 | NUR ---
TOLERATIGN VAPOTHERM AT 20 L/70% WELL. RESP NON-LABORED AT REST. O2 SAT MAINTIANING UPPRT 90'S.
--- NOTE | 2020-10-28 01:15 | NUR ---
ASSISTED PATIENT BACK TO BED. O2 SAT 87-89% WITH ACTIVITY. O2 SAT QUICKLY BACK TO 93% ONCE IN BED.
--- NOTE | 2020-10-28 02:00 | NUR ---
O2 SAT 96% REMAINS ON VAPOTHERM, 20 L/O2 DECREASED TO 65% AT THIS TIME.
--- NOTE | 2020-10-28 03:45 | NUR ---
SLEEPING SOUNDLY. RESP NON-LABORED. RR 17, O2 SAT 93% CONTNIUES ON VAPOTHERM 20 L/REDUCED TO 60% WILL CONTINUE TO MONITOR CLOSELY.
--- NOTE | 2020-10-28 06:15 | NUR ---
SLEPT WELL. VSS, MAINTAINING O2 SATS GREATER THAN 90% RESP NON-LABORED. SR ON MONITOR. VOIDS LARGE AMOUNTS CLEAR YELLOW URINE. IN NO APPARENT DISTRESS.
--- NOTE | 2020-10-28 07:15 | NUR ---
RECEIVED REPORT FROM NIGHT NURSE.
--- NOTE | 2020-10-28 08:00 | NUR ---
PATIENT ASSESSED, BREAKFAST ON SIDE TABLE.
--- NOTE | 2020-10-28 10:00 | NUR ---
PATIENT IS SITTING UP IN CHAIR WATCHING TV.
--- NOTE | 2020-10-28 10:48 | NUR ---
PT TAKEN OFF VAPOTHERM AND PLACED ON 10 L/MIN HFNC. SPO2 91%.
--- NOTE | 2020-10-28 12:00 | NUR ---
PATIENT EATING HIS LUNCH IN HIS CHAIR.
--- NOTE | 2020-10-28 13:53 | NUR ---
Patient did seated AROM B LE exercises doing hip flexion, hip adduction, hip abduction, hamstring curls, knee extension, gluteal squeezes, and ankle AROM for 10 reps x 3 sets at 10 liters (previously using 40 liters). Patient did sit to stand exercise doing 3 to 4 reps with 1 to 3 attempts each repetition with mod to min A x 1 with patient not exhibiting increased fatigue. Patient took 2 to 3 rest periods each exercise repetition.
--- NOTE | 2020-10-28 14:10 | NUR ---
PATIENT USED CALL LIGHT TO ASK FOR HELP ONTO BEDSIDE COMMODE.
--- NOTE | 2020-10-28 16:00 | NUR ---
PATIENT IS RESTING IN HIS CHAIR.
--- NOTE | 2020-10-28 17:37 | NUR ---
PATIENT WAS GIVEN 10 UNITS PER PREVIOUS SLIDING SCALE. MD INCREASED TO HIGH SCALE AFTER CONTACTED, WHICH REQUIRED AN ADDITIONAL 4 UNITS, TOTAL OF 14 UNITS WERE GIVEN.
--- NOTE | 2020-10-28 18:00 | NUR ---
PATIENT IS SITTING UP, ATE HIS ENTIRE DINNER, ENJOYED HIS SWEET TEA. NOW WATCHING A MOVIE ON HIS PHONE.
--- NOTE | 2020-10-28 19:05 | NUR ---
REPORT GIVEN BY BLAISE. PATIENT IN BEDSIDE RECLINER. RESP EVEN AND UNLABORED, 10L HI-FLOW NC. NO S/S OF DISTRESS NOTED. FALL AND SAFTEY PRECAUTIONS. IV SLAINE LOCKED. PATIENT USING THE URINAL. PLAN OF CARE DISCUSSED. PATIENT INFORMED TO CALL WITH ANY QUESTIONS OR CNCERNS.
--- NOTE | 2020-10-28 21:48 | NUR ---
PM MEDICATIONS GIVEN. PATIENT REQUESTING SLEEPING PILL AND XANAX AT BEDTIME
[2020-10-29] VITALS (10 sets, daily range): BP systolic 125–155; BP diastolic 62–89
--- NOTE | 2020-10-29 00:03 | NUR ---
PATIENT EQUESTING XANAX AND SLEEPING PILL. PATIENT TRANSFERED FROM RECLINER TO BED FOR SLEEP. HI-FLOW NC IN PLACE.
--- NOTE | 2020-10-29 01:41 | NUR ---
PATIENT RESTING IN BED WITH EYES CLOSED. FALL AND SAFTEY PRECAUTIONS IN PLACE. NO S/S OF DISTRESS NOTED. RESP EVEN AND UNLABORED, 10L VIA NC.
[2020-10-29 05:07] LABS: HEMATOCRIT 39.6 % (39.0-50.0); HEMOGLOBIN 13.4 g/dl (14.0-18.0); IMMATURE GRANULOCYTES 0.9 % (0.0-5.0); MEAN CELL VOLUME 85.5 fL CALC (80.0-100.0); MEAN CORPUSCULAR HGB 28.9 pG CALC (26.0-32.0); MEAN CORPUSCULAR HGB CONC 33.8 g/dL CAL (32.0-36.0); NEUT# 9.91 thou/uL (1.82-7.42); RED BLOOD COUNT 4.63 mill/uL (4.70-6.10); RED CELL DISTRI WIDTH 12.1 % (11.5-15.5)
--- NOTE | 2020-10-29 05:11 | NUR ---
PATIENT AWAKE USING THE URINAL. LABTECH LEFT THE ROOM A FEW MIN AGO FROM DRAWING MORNING LABS. FALL AND SAFTEY PRECAUTIONS. NO S/ OF DISTRESS NOTED.
[2020-10-29 05:32] LABS: ANION GAP 8 (6-22 (CALC)); BUN 20 mg/dL (9-20); BUN/CREATININE RATIO 40 (12-20 (CALC)); C-REACTIVE PROTEIN < 0.5 mg/dL (0-0.9); CARBON DIOXIDE 33 mmol/l (22-30); CHLORIDE 92 mmol/l (95-108); CREATININE 0.5 mg/dL (0.7-1.3); GFR > 60 ML/MIN (>=60 (CALC)); GFR FOR AFR.AMER. > 60 ML/MIN (>=60 (CALC)); POTASSIUM 4.2 mmol/l (3.5-5.1); SODIUM 129 mmol/l (137-146)
--- NOTE | 2020-10-29 06:50 | NUR ---
O2 SATURATION ON 10L HFNC 98%. DECREASED TO 8L.
--- NOTE | 2020-10-29 07:15 | NUR ---
PATIENT ALERT AND ORIENTED X 3 AT THIS TIME. BUILDING DISMANTLER DONE AT THIS TIME. PATIENT HEART MONITOR READING S/R AND 64 BPM. VITAL SIGNS TAKEN AT THIS TIME. SEE INTERVENTIONS. PATIENTS LUNGS SOUNDS REMAIN DIMINISHED IN ALL MONTERO. PATIENT ON HI-FLOW AT 8 LITERS AT THIS TIME AND SPO2 IS 95% AT THIS TIME. PATIENT PRESENTS NO COUGHING AT THIS TIME AND PATIENT DENIES ANY PAIN AND STATES HIS PAIN IS A 0 ON THE PAIN SCALE OF 0-10. PATIENT DID VOID CLEAR YELLOW URINE AT THIS TIME(SEE INTERVENTIONS). ACCU CHECK DONE AND BLOOD GLUCOSE LEVEL IS 306 AND 10 UNITS OF HUMALOG GIVEN FOR COVERAGE. SIDERAILS ARE X2 CALL LIGHT AND PERSONAL ITEMS WIHTIN REACH.
--- NOTE | 2020-10-29 08:00 | NUR ---
DR. SANCHES IN TO SEE PATIENT AT THIS TIME. DR. SANCHES TURNED DOWN HI-FLOW O2 TO 6 LITERS AT THIS TIME. PATIENT SPO2 IS 92% AND DR. SANCHES STATED IF PATIENT REMAINS 92% OR ABOVE TO TRANSFER PATIENT TO MED-SURG FLOOR AFTER NOON. WILL CONTINUE TO MONITOR AT THIS TIME.
--- NOTE | 2020-10-29 10:03 | NUR ---
PATIENT RESTING IN BED AT THIS TIME. HI-FLOW SPO2 IS 92%. PATIENT DENIES ANY SHORTNESS OF BREATH AT THIS TIME. PATIENT PULSE OX FINGER PROBE CHANGED AT THIS TIME. SIDERAILS ARE UP X 2 CALL LIGHT AND PERSONAL ITEMS NEAR. URINAL EMPTIED AT THIS TIME.
--- NOTE | 2020-10-29 11:35 | NUR ---
PATIENT SITTING UP IN BED AT THIS TIME. PATIENT REMAINS ON 6L OF HI-FLOW O2 AND THE SPO2 IS 92%. PATIENT DENIES ANY SHORTNESS OF BREATH AT THIS TIME. PATIENT DENIES ANY PAIN AND ACCU CHECK PREFORM AND ACCU CHECK WAS 338 AND 10 UNITS OF HUMALOG GIVEN IN BACK OF LEFT ARM. PATIENT URINAL EMPTIED AT THIS TIME SEE INTERVENITON. FREIGHT SOLICITOR SHOWING S/R AT THIS TIME. SIDERAILS ARE UP X 2 CALL LIGHT AND PERSONAL ITEMS WITHIN REACH.
--- NOTE | 2020-10-29 12:02 | NUR ---
O2 SAT ON 6L HF IS 92%.
--- NOTE | 2020-10-29 13:12 | NUR ---
Patient did B LE seated B LE AROM exercises doing hip flexion, hip adduction, hip abduction, hamstring curls, knee extension, hip external and internal rotation, and ankle AROM for 10 reps x 3 sets with occasional verbal and tactile cuing to remind patient to lift LE consistently with min to CGA x 1 to help decrease trick movements and fall risks. Patient did log rolling supine to sitting bed mobility and sit to stand push off transfer ADLs for 1 to 3 reps with occasional verbal and tactile cuing to decrease fall risks. Patient walked and did 10 feet coverage in the room for 2-3 reps at 10 liters of oxygen with no c/o SOB with CGA x 1 with guarded LE elevation and occasional slouching posture.
--- NOTE | 2020-10-29 13:29 | NUR ---
PATIENT BEING TRANSFERED TO MED-SURG BED 288. REPORT GIVEN TO CINDA HARDING. PATIENT BEING TRANSFERED BY WHEELCHAIR AT THIS TIME.
--- NOTE | 2020-10-29 14:05 | NUR ---
PT ARRIVED VIA WC WITH STAFF AND IV SITE. ALL BELONGINGS
--- NOTE | 2020-10-29 15:30 | NUR ---
O2 SAT ON 6L IS 96%.
--- NOTE | 2020-10-29 16:15 | NUR ---
PT IS SITTING IN THE CHAIR NO DISTRESS NOTED. IV SITE IS FREE FROM REDNESS OR EDEMA.
--- NOTE | 2020-10-29 17:34 | NUR ---
PT RECEIVED A LARGE BOWL OF FRUIT FROM HIS FAMILY. WAS HUNGRY . BLOOD SUGAR WAS CHECKED IT IS CRITICAL HIGH ON THE GLUCOSE MONITOR. LABS WAS SENT FOR TESTING.
--- NOTE | 2020-10-29 18:35 | NUR ---
SPOKE WITH DR SANCHES RE: BLLOD SUGAR OF 501 AND THE LAB IS 402. INCREASED THE LEVEMIR AND GAVE 14UNITS OF NOVOLOG. GAVE PT INSTRUCTIONS ON THE FRUIT AND CARB COUNTING, THE PLATE METHOD. INFORMED PT OF THE AMOUNT OF FRUIT , IS THE PROBLEM WITH BLOOD SUGAR. VERBALIZED UNDERSTANDING.
--- NOTE | 2020-10-29 19:05 | NUR ---
REPORT RECEIVED FROM Yael PATEL LPN, CARE OF PT ASSUMED AT THIS TIME.
--- NOTE | 2020-10-29 20:45 | NUR ---
PHYSICAL ASSESMENT COMPLETED. PT SITTING UP IN RECLINER WATCHING VIDEO ON HIS MOBILE PHONE. APPEARS COMFORTABLE AND IN NO DISTRESS. RESPIRATIONS REGULAR AND UNLABORED AT REST. LUNGS CLEAR WITH DIMINISHED BASES. SPO2 97% WITH 02 @ 6L/MIN VIA HI-MIRTHA NC. FINGERSTICK GLUCOSE 386mg/dl. PT HAS HAD FOOD BROUGHT IN FROM HOME. EDUCATION PROVIDED ON CALORIC INTAKE AND DIABETIC DIET. PT ALSO ADVISED PRESCRIBED DIET IS [address] AND OUTSIDE FOOD IS NOT COMPLIANT WITH PROVIDER PRESCRIBED DIET. PT VERBALIZES UNDERSTANDING. PT CHOOSES TO KEEP AND EAT FOOD BROUGHT IN FOR HIM. PLAN OF CARE REVIEWED, PT VERBALIZES UNDERSTANDING. PT DENIES NEEDS AT THIS TIME. CALL LANDON WITHIN REACH, AGREES TO CALL PRN.
--- NOTE | 2020-10-29 21:23 | NUR ---
SEE E-MAR FOR MEDICATION ADMINISTRATION.
[2020-10-30] VITALS: BP 140/76
--- NOTE | 2020-10-30 | NUR ---
PRN XANAX AND RESTORIL ADMINISTERED, SEE E-MAR. PT ASSISTED TO SET UP FOR BED. PT AMBULATORY FROM RECLINER TO BED INDEPENDENTLY.
[2020-10-30 04:00] VITALS: BP 121/69
--- NOTE | 2020-10-30 04:25 | NUR ---
Cary OLIVARES HISTORICAL RECORDS ADMINISTRATOR AT BEDSIDE TO COLLECT AM BLOOD WORK.
[2020-10-30 05:43] LABS: HEMATOCRIT 39.4 % (39.0-50.0); HEMOGLOBIN 13.3 g/dl (14.0-18.0); MEAN CELL VOLUME 85.8 fL CALC (80.0-100.0); MEAN CORPUSCULAR HGB CONC 33.8 g/dL CAL (32.0-36.0); RED BLOOD COUNT 4.59 mill/uL (4.70-6.10)
[2020-10-30 05:48] LABS: ANION GAP 10 (6-22 (CALC)); BUN 21 mg/dL (9-20); BUN/CREATININE RATIO 40 (12-20 (CALC)); CARBON DIOXIDE 29 mmol/l (22-30); CHLORIDE 93 mmol/l (95-108); CREATININE 0.5 mg/dL (0.7-1.3); GFR > 60 ML/MIN (>=60 (CALC)); GFR FOR AFR.AMER. > 60 ML/MIN (>=60 (CALC)); MAGNESIUM 1.8 mg/dL (1.6-2.3); POTASSIUM 4.2 mmol/l (3.5-5.1); SODIUM 127 mmol/l (137-146)
--- NOTE | 2020-10-30 06:45 | NUR ---
pt resting comfortably. no acute distress ntoed at this time. possble wean of oxygen delivery device today. fiber glass worker to monitor.
--- NOTE | 2020-10-30 07:45 | NUR ---
PATIENT LAYING IN BED ALERT AND ORIENTED AT THIS TIME. PATIENT REMAINS ON 6 LITERS OF HI-FLOW O2 AND IS SPO2 IS 94% AT THIS TIME. PATIENT DENIES ANY NEEDS AND NO PAIN AT THIS TIME. TELE MONITOR ON AND BEING MONITORED BY ED. SIDERAILS ARE UP X 2 CALL LIGHT IS WITHIN REACH.
[2020-10-30 08:52] VITALS: BP 128/69
--- NOTE | 2020-10-30 09:30 | NUR ---
DR. SANCHES AND JUVENCIO BARTON ASSISTANT HALL DIRECTOR IN TO SEE PATIENT AT THIS TIME. HI-FLOW O2 TURNED DOWN TO 4.5 LITERS WILL CONTINUE TO MONITOR AND EXPLAINED TO PATIENT TAHT A 6 MINUTE WALK TEST WILL BE PREFORMED TO DETERMINE HOME OXYGEN NEED. PATIENT VERBALIZED UNDERSTANDING.
--- NOTE | 2020-10-30 10:31 | NUR ---
SIX MINUTE WALK TEST PREFORMED: 02 REMOVED FOR 30 MINUTES AND SPO2 DROPPED TO 79% WALK TEST STOPPED AT THIS TIME AND O2 REPLACED AT 4.5L AND WENT UP TO 89% AND AT FINAL RESTING SPO2 MOVED TO 93% PROVIDER HARINDER BARTON APRN NOTIFIED OF RESULTS AND CASE MANAGEMENT NOTIFIED OF NEED OF HOME OXYGEN.
[2020-10-30 11:45] VITALS: BP 105/59
--- NOTE | 2020-10-30 12:01 | NUR ---
PATIENT SITTING UP IN CHAIR AT THIS TIME EATING LUNCH. PATIENT DENIES ANY PAIN OR NEEDS 02 REMAINS ON AT 4.5 LITERS HI-FLOW AT THIS TIME. CALL LIGHT IS WITHIN REACH.
--- NOTE | 2020-10-30 13:53 | NUR ---
Patient did seated and standing AROM exercises for B LE at 6 liters of oxygen doing hip flexion, hip adduction, hip abduction, hamstring curls, knee extension, hip external and internal rotation, and hip extension for 10 reps x 2 sets with occaasional verbal and tactile cuing to help decrease trick movements and fall risks. Patient did log rolling bed mobility and sit to stand push off technique with CGA to SBA x 1 to help decrease trick movements and fall risks. Patient walked with CGA to SBA x 1 covering approximately 5 to 10 feet x 2 reps with no assistive device with 6 liters oxygen with patient exhibiting tiredness after 1st repetition.
[2020-10-30 15:53] VITALS: BP 140/72
--- NOTE | 2020-10-30 16:00 | NUR ---
PATIENT SITTING UP IN CHAIR AT THIS TIME. PATIENT DENIES ANY PAIN AND OR NEEDS. PATIENT REMAINS ON 4.5L OF O2 AND SPO2 IS 91% AT THIS TIME. PATIENT STATES HE ONLY FEELS SHORT OF BREATH ON EXCERTION BUT WHILE IN THE CHAIR HE "FEEL NO SHORTNESS OF BREATH". CALL LIGHT IS WITH IN REACH AND NO OTHER NEEDS EXPRESSED.
--- NOTE | 2020-10-30 18:50 | NUR ---
REPORT FROM JASON ARIAS. ASSUMED PT CARE.
[2020-10-30 19:00] VITALS: BP 137/88
--- NOTE | 2020-10-30 19:45 | NUR ---
RESTING IN BED. AWAKE, ALERT AND ORIENTED X4. SPEECH CLEAR WITH APPROPRIATE RESPONSES TO QUESTIONS. FACE SYMMETRICAL. TONGUE MIDLINE ON EXTENSION. FOLLOWS DIRECTIONS. MOVES ALL EXTREMITIES EQUAL AND WELL. NIH 0. DENIES HEADACHE, VISUAL DISTURBANCES, NUMBNESS OR TINGLING. RESP NON-LABORED. O2 ON AT 2 L NC. BREATH SOUNDS CLEAR THROUGHOUT LUNG MONTERO. NO PERIPHERAL EDEMA, PULSES INATCT. SALINE LOCK INTACT IN RAC AND RH, BOTH SITES BENIGN, DSG CDI. DRAFTER (CAD) ELECTRICAL SHOWS SR. DISCUSSED PLAN OF CARE. DENIES NEEDS AT THIS TIME. CALL LANDON IN REACH.
[2020-10-31 00:08] VITALS: BP 118/62
--- NOTE | 2020-10-31 00:08 | NUR ---
ASSISTED PT INTO BED. NO APPARENT DISTRESS NOTED. PT REMAINS ON 4.5L/M VIA NC. MEDICATED FOR SLEEP AND ANXIETY. IV SITE APPEARS HEALTHY. LVN LPN IN PLACE. VSS. URINAL EMPTIED. CALL LIGHT WITHIN REACH. WILL CONTINUE TO MONITOR.
[2020-10-31 04:00] VITALS: BP 111/64
--- NOTE | 2020-10-31 04:31 | NUR ---
PT RESTING IN BED WITH EYES CLOSED. NO APPARENT DISTRESS NOTED. RESPIRATIONS EVEN AND UNLABORED. PT REMAINS ON 4.5L/M VIA NC. TELEMETRY MONTIOR IN PLACE. CALL LIGHT WITHIN REACH. WILL CONTINUE TO MONITOR.
[2020-10-31 07:10] VITALS: BP 110/64
--- NOTE | 2020-10-31 07:10 | NUR ---
PATIENT RESTING IN BED AT THIS TIME. [employer]WORK[employer] DONE AT THIS TIME SEE INTERVENTION AT THIS TIME. ACCU CHECK WAS 158 AND 2 UNITS OF HUMALOG GIVEN AT THIS TIME. O2 REMAINS ON AT 4.5 LITERS AND SPO2 IS 94%. PATIENT DEINES ANY PAIN AND OR NEEDS AND SHORTNESS OF BREATH. SIDERAILS ARE UP CALL LIGHT IS WITHIN REACH.
[2020-10-31 09:08] LABS: HEMATOCRIT 42.4 % (39.0-50.0); HEMOGLOBIN 14.1 g/dl (14.0-18.0); MEAN CELL VOLUME 87.4 fL CALC (80.0-100.0); MEAN CORPUSCULAR HGB 29.1 pG CALC (26.0-32.0); MEAN CORPUSCULAR HGB CONC 33.3 g/dL CAL (32.0-36.0); NEUT# 5.67 thou/uL (1.82-7.42); RED BLOOD COUNT 4.85 mill/uL (4.70-6.10); RED CELL DISTRI WIDTH 12.4 % (11.5-15.5)
[2020-10-31 09:59] LABS: ALBUMIN 2.9 g/dL (3.2-5.0); ALKALINE PHOSPHATASE 100 u/l (38-126); ANION GAP 7 (6-22 (CALC)); BILIRUBIN, TOTAL 0.7 mg/dL (0.0-1.4); BUN 17 mg/dL (9-20); BUN/CREATININE RATIO 29 (12-20 (CALC)); C-REACTIVE PROTEIN < 0.5 mg/dL (0-0.9); CARBON DIOXIDE 34 mmol/l (22-30); CHLORIDE 95 mmol/l (95-108); CREATININE 0.6 mg/dL (0.7-1.3); GFR > 60 ML/MIN (>=60 (CALC)); GFR FOR AFR.AMER. > 60 ML/MIN (>=60 (CALC)); POTASSIUM 4.1 mmol/l (3.5-5.1); SGOT/AST 21 u/l (17-59); SODIUM 131 mmol/l (137-146); TOTAL PROTEIN 5.7 g/dL (6.3-8.2)
[2020-10-31 10:35] VITALS: BP 101/67
--- NOTE | 2020-10-31 11:45 | NUR ---
PATIENT SITTING UP IN CHAIR AT THIS TIME. PATIENT 02 REMAINS ON AT 4.5 LITERS OF HI-FLOW OXYGEN. PATIENT IS USING INCENTIVE SPIROMETER AND STATES AT THIS TIME HIS IS NOT SHORT OF BREATH. TELE MONITOR ON AND BEING MONITOED BY ED. SIDERAILS ARE UP CALL LIGHT WITHIN REACH.
[2020-10-31] MEDS ORDERED: AMLODIPINE BESYL5 MG PO (13:01)
[2020-10-31] MEDS ORDERED: ALPRAZOLAM0.5 M2 PO (13:01)
[2020-10-31] MEDS ORDERED: RELION (13:01)
[2020-10-31] MEDS ORDERED: NOVOLIN N100 UNIT/4 SC (13:01)
[2020-10-31] MEDS ORDERED: ASPIRIN REGULA325 M1 PO (13:01)
[2020-10-31] MEDS ORDERED: OXY1 (13:01)
--- NOTE | 2020-10-31 14:14 | NUR ---
Patient did log rolling bed mobility and sit to stand push off transfer technique (3 reps) with CGA to SBA x 1 with occasional verbal and tactile cuing to help decrease trick movements and fall risks. Patient did B LE AROM exercises doing knee extension, hip flexion, hamstring curls, hip adduction and abduction, hip extension, and mini squats for 10 reps x 3 sets with occasional verbal and tactile cuing to help decrease fall risks. Patient did gait ADLs on level surfaces covering 15 feet x 3 reps with CGA to SBA x 1 and occasional verbal and tactile cuing to improve functional weight bearing stability.
--- NOTE | 2020-10-31 16:00 | NUR ---
PATIENT SITTING UP IN CHAIR AT THIS TIME DENIES ANY NEEDS O2 REMAINS ON AT 4.5 LITERS AT HI-FLOW. PATIENT ADVISED THAT SOON APPROVAL OF O2 FROM FREE OXYGEN COMES THRU HE MAY BE D/C. PATIENT VERBALIZES UNDERSTANDING OF THIS. CALL LIGHT IS WITHIN REACH AT THIS TIME. PATIENT DENIES ANY OTHER NEEDS.
[2020-10-31 16:45] VITALS: BP 111/69
--- NOTE | 2020-10-31 17:48 | NUR ---
PATIENT D/C AT THIS TIME. PATIENT SENT HOME ON OXYGEN AND VERBALIZES UNDERSTANDING OF ALL DISCHARGE INSTRUCTIONS.
--- NOTE | 2020-10-31 18:55 | NUR ---
Discharge instructions given. Patient verbalizes understanding of same. Discharged in stable condition via Wheelchair to Home with family. All belongings sent with pt.
--- NOTE | 2020-11-06 11:11 | NUR ---
Pneumonia post discharge follow up call completed today, 11/06/20. Pt. states he is still using aprx. 4L O2 daily. No fever or chills, but still experiencing extreme fatigue. Discharge medications provided to patient except for insulin. Patient has not had insulin since discharge. Saw PCP yesterday and obtained insulin samples to last for 2-3 weeks. Encouraged pt not to let insulin supply run out before contacting his PCP for additional samples if available. I also notified [facility] pharmacy customer care specialist of patient circumstance for potential resources. No other needs voiced at this time..
== END 2020-10-31 18:55 | disposition home or self-care (01) | DRG 177 ==
LOC: ED 23:26 → ED-I 10-18 01:35 → ED 10-18 01:50 → MS2 10-18 01:51 → ICU 10-18 10:51 → MS2 10-29 13:45
PROVIDERS: Emergency Medicine; Nurse Practitioner; ADMIT Internal Medicine; ATTEND Internal Medicine
PROC: XW033E5 Introduction of Remdesivir Anti-infective into Peripheral Vein, Percutaneous Approach, New Technology Group 5 (ICD-10-PCS; principal; 2020-10-18)
PROC: 5A09357 Assistance with Respiratory Ventilation, Less than 24 Consecutive Hours, Continuous Positive Airway Pressure (ICD-10-PCS; 2020-10-19)
DX: U07.1 COVID-19 (principal); J12.82 Pneumonia due to coronavirus disease 2019; J96.01 Acute respiratory failure with hypoxia; E87.1 Hypo-osmolality and hyponatremia; I10 Essential (primary) hypertension; E11.65 Type 2 diabetes mellitus with hyperglycemia; F41.9 Anxiety disorder, unspecified; G47.00 Insomnia, unspecified; T38.3X6A Underdosing of insulin and oral hypoglycemic [antidiabetic] drugs, initial encounter; Z91.128 Patient's intentional underdosing of medication regimen for other reason; Z79.4 Long term (current) use of insulin
CPT/HCPCS: J1650; Q9967